=== PATIENT | female | born 1990 | race Hispanic/Latino ===

== ENCOUNTER 2020-06-10 14:49 | Outpatient (CLI) | payer MEDICAID ==
--- NOTE | 2020-06-10 15:58 | ULT ---
EXAM: Obstetrical ultrasound greater than 14 weeks: HISTORY: Supervision of high risk , size and dates, anatomy COMPARISON: None. FINDINGS: Single viable intrauterine fetus is noted in transverse lie on the maternal left side presentation. heart rate: 161 bpm. Placenta: Posterior and low lying with marginal placenta previa. Recommend follow-up examination later in for reevaluation.. Cervical length: 6.8 cm. Amniotic fluid: Within normal limits. Maternal Adnexa:Not visualized anatomy: Visualized brain, 4 chamber heart, chest, three-vessel cord, cord insert, stomach, bladder, kid neys, spine, and extremity regions are unremarkable. biometry: BPD: 4.8 cm--20 weeks 5 days Head circumference: 18.7 cm--20 weeks 0 days Abdominal circumference: 15.8 cm--29 weeks 0 days Femur length:3.5 cm--20 weeks 0 days IMPRESSION: Gestational age by ultrasound: 21 weeks 0 days FRANCESCA by ultrasound: 10/21/2020 Estimated weight: 386 g CODE T
== END 2020-06-10 14:50 | disposition home or self-care (01) ==
LOC: BICULT 14:49
PROVIDERS: ATTEND Family Medicine
DX: O09.892 Supervision of other high risk pregnancies, second trimester (principal); Z3A.21 21 weeks gestation of pregnancy
CPT/HCPCS: 76805

== ENCOUNTER 2022-01-12 09:11 | Outpatient (CLI) | payer OTHER | END 2022-01-12 09:12 | disposition home or self-care (01) | LOC: BICULT 09:11 | PROVIDERS: ATTEND Family Medicine | DX: O09.892 Supervision of other high risk pregnancies, second trimester (principal); Z3A.18 18 weeks gestation of pregnancy | CPT/HCPCS: 76805 ==

== ENCOUNTER 2023-06-27 13:52 | Emergency (ER) | payer SELFPAY ==
[2023-06-27 15:08] LABS: #Eosinphils 0.2 thou/uL (0.0-0.7); #Monocytes 0.5 thou/uL (0.11-0.59); #Neutrophils 3.3 thou/uL (1.40-6.50); %Basophils 0.6 % (0.0-1.0); %Lymphocytes 38.7 % (21.0-51.0); %Monocytes 7.9 % (0.0-10.0); %Neutrophils 49.7 % (42.0-75.0); Hematocrit 42.1 % (36.0-47.0); Hemoglobin 14.2 g/dL (12.0-16.0); Mean Corpuscular HGB CONC 33.7 g/dL (32.0-36.0); Mean Corpuscular Hemoglobin 30.8 pg (27.0-31.0); Mean Corpuscular Volume 91.3 fl (78.0-98.0); Mean Platelet Volume 10.4 fL (7.4-10.4); Platelet Count 213 10x3/uL (130-400); RBC Distribution Width 12.7 % (11.5-14.5); Red Blood Cell (RBC) Count 4.61 mill/uL (4.20-5.40); White Blood Cell (WBC) Count 6.7 10x3/uL (4.8-10.8)
[2023-06-27 15:20] LABS: BHCG - Serum Negative (NEGATIVE); Pregs Control Background? CLEAR/WHITE (CLR/WHITE); Pregs Control Bar Appear? YES (CONTROL BAR)
[2023-06-27 15:31] LABS: ALT (SGPT) 94 U/L (8-55); AST (SGOT) 37 U/L (5-34); Albumin 5.3 g/dL (3.5-5.0); Alkaline Phosphatase 128 U/L (40-110); Anion Gap 15 mmol/L (10-20); BUN (Urea Nitrogen) 14 mg/dL (7.0-18.7); Bilirubin, Total 0.5 mg/dL (0.2-1.2); Calc. Creatinine Clearance 0 mL/min (70-130); Calcium 10.2 mg/dL (7.8-10.44); Carbon Dioxide 23 mmol/L (22-29); Chloride 106 mmol/L (98-107); Estimated GFR 120; Glucose 89 mg/dL (70-105); Potassium 4.5 mmol/L (3.5-5.1); Protein, Total 8.3 g/dL (6.0-8.3); Sodium 139 mmol/L (136-145)
[2023-06-27 17:31] LABS: Troponin I Less than 0.010 ng/mL (< 0.028)
[2023-06-27 19:19] LABS: SARS-CoV-2 NAA Rapid Test Not Detected (NotDetected)
== END 2023-06-27 20:55 | disposition home or self-care (01) ==
LOC: ERS 13:52
DX: R06.02 Shortness of breath (principal); Z20.822 Contact with and (suspected) exposure to COVID-19
CPT/HCPCS: 36415; 71045; 80053; 83880; 84484; 84703; 85025; 85379; 93005

== ENCOUNTER 2023-08-26 10:46 | Outpatient (CLI) | payer OTHER | END 2023-08-26 10:47 | disposition home or self-care (01) | LOC: BICULT 10:46 | PROVIDERS: ATTEND Family Medicine | DX: R10.11 Right upper quadrant pain (principal); R74.8 Abnormal levels of other serum enzymes | CPT/HCPCS: 76700 ==